=== PATIENT | female | born 1985 | race Caucasian/White ===

== ENCOUNTER 2019-03-02 14:57 | Inpatient (IN) ==
[2019-03-02] MEDS ORDERED: FLU VACCINE IM ONE (17:48)
[2019-03-02] MEDS ORDERED: PNEUMOVAX 23 IM ONE (18:00)
[2019-03-02] MEDS ORDERED: ZOFRAN IV PRN (18:05)
[2019-03-02] MEDS ORDERED: TYLENOL PO PRN (18:05)
[2019-03-02] MEDS ORDERED: SINEMET 25/100 PO PRN (18:05)
[2019-03-02] MEDS ORDERED: DESYREL PO PRN (18:05)
[2019-03-02] MEDS ORDERED: TUBERSOL ID ONE (18:05)
[2019-03-02] MEDS ORDERED: DULCOLAX PR PRN (18:05)
[2019-03-02] MEDS ORDERED: IMODIUM PO PRN (18:05)
[2019-03-02] MEDS ORDERED: ZOFRAN ODT PO PRN (18:05)
[2019-03-02] MEDS ORDERED: BENTYL PO PRN (18:05)
[2019-03-02] MEDS ORDERED: PHENOBARBITAL IV PRN (18:05)
[2019-03-02] MEDS ORDERED: ROBAXIN PO PRN (18:05)
[2019-03-02] MEDS ORDERED: NICODERM PATCH TD PRN (18:05)
[2019-03-02] MEDS ORDERED: ATARAX PO PRN (18:05)
[2019-03-02] MEDS ORDERED: MOTRIN PO PRN (18:05)
[2019-03-02] MEDS ORDERED: MAALOX PLUS LIQUID PO PRN (18:05)
[2019-03-02] MEDS ORDERED: D5W 1,000 ML IV PRN (18:05)
[2019-03-02] MEDS ORDERED: SENOKOT PO PRN (18:05)
[2019-03-02 19:08] LABS: HEMATOCRIT 36.8 % (37.0-47.0); HEMOGLOBIN 11.5 g/dL (12.0-16.0); MCH 26.7 PG (27-31); MCHC 31.3 g/dL (33-37); MCV 85.4 FL (81-99); MPV 9.9 FL (7.4-10.4); RBC 4.31 XMIL (4.2-5.4); RDW 13.9 % (11.5-14.5); WBC 5.95 X1000 (4.8-10.8)
[2019-03-02 19:31] LABS: INR 0.87; PROTIME 12.3 Seconds (11.0-16.0)
[2019-03-02 19:39] LABS: AMYLASE 36 U/L (20-200); LIPASE 12 U/L (13-60)
[2019-03-02 19:43] LABS: AGAP 12; ALBUMIN 4.4 g/dL (3.5-5.0); ALKALINE PHOSPHATASE 92 U/L (32-104); BUN 12 mg/dL (8-22); CALCIUM 8.8 mg/dL (8.8-10.2); CHLORIDE 105 mmol/L (98-107); COSMO 279; CREATININE 0.4 mg/dL (0.5-0.9); ESTIMATED GFR > 60; GLUCOSE 94 mg/dL (70-104); GOT 27 U/L (10-30); GPT 41 U/L (10-36); POTASSIUM 4.4 mmol/L (3.5-5.1); SODIUM 140 mmol/L (136-145); TCO2 23 mmol/L (25-35); TOTAL PROTEIN 7.4 g/dL (6.3-8.3)
[2019-03-02 20:07] LABS: URINE SOURCE VOIDED
[2019-03-02 20:12] LABS: BILIRUBIN URINE NEGATIVE (NEGATIVE); BLOOD URINE TRACE (NEGATIVE); COLOR YELLOW; GLUCOSE URINE NEGATIVE (NEGATIVE); KETONE URINE NEGATIVE (NEGATIVE); LEUKOCYTES URINE NEGATIVE (NEGATIVE); NITRITE URINE POSITIVE (NEGATIVE); PROTEIN URINE TRACE mg/dL (NEGATIVE); SP GRAVITY URINE 1.032; TURBIDITY URINE HAZY (CLEAR); UROBILINOGEN URINE NORMAL (NORMAL)
[2019-03-02 20:14] LABS: UR EPITHELIAL CELLS <10 /HPF (<10); URINE BACTERIA 4+ /HPF; URINE RBC <10 /HPF (<10); URINE WBC <10 /HPF (<10)
[2019-03-02 20:22] LABS: UR AMPHETAMINES QUAL PRESUMPTIVE POSITIVE (NONE DETECT); UR BARBITUATES QUAL NONE DETECTED (NONE DETECT); UR BENZODIAZEPIN QUAL NONE DETECTED (NONE DETECT); UR CANNABINOIDS QUAL NONE DETECTED (NONE DETECT); UR COCAINE QUAL NONE DETECTED (NONE DETECT); UR METHADONE QUAL NONE DETECTED (NONE DETECT); UR METHAMPHETAMINE QUAL PRESUMPTIVE POSITIVE (NONE DETECT); UR OPIATES QUAL PRESUMPTIVE POSITIVE (NONE DETECT); UR OXYCODONE QUAL NONE DETECTED (NONE DETECT); UR PCP QUAL NONE DETECTED (NONE DETECT); UR PROPOXYPHENE QUAL NONE DETECTED (NONE DETECT); UR TCA QUAL NONE DETECTED (NONE DETECT)
[2019-03-02] MEDS: SUBOXONE 2 MG/0.5 MG FILM SL SCH (21:15)
[2019-03-03] MEDS: SEROQUEL PO PRN (00:51)
[2019-03-03] MEDS: SUBOXONE 2 MG/0.5 MG FILM SL SCH ×2 (08:41→21:04)
[2019-03-03] MEDS: PROTONIX PO SCH (08:42)
[2019-03-03] MEDS: FOLIC ACID PO SCH (08:42)
[2019-03-03] MEDS: VITAMIN B-1 PO SCH (08:42)
[2019-03-03] MEDS: THERA M PLUS PO SCH (08:42)
--- NOTE | 2019-03-03 11:46 | PROGRESS NOTE ---
DATE: 03/03/2019 SUBJECTIVE: Patient notes that she is feeling a little bit better. Denies any fevers, chills. PHYSICAL EXAMINATION: Vital Signs: Reviewed. General: She is awake, alert. She is in no distress, sitting in bed watching television. HEENT: Normocephalic. Neck: Supple. Cardiovascular: Regular rate. Chest: Clear, nonlabored. Abdomen: Soft, nondistended. Extremities: Moves all extremities. Neurologic: No focal changes. Skin: Warm and dry. No rashes. ASSESSMENT: 1. Nausea and vomiting. 2. Abdominal pain. 3. Myalgias. 4. Paresthesias. 5. Paroxysmal sweating. 6. Opiate abuse withdrawal and stabilization. 7. Polysubstance use and abuse. PLAN: We will continue counseling patient. Continue Suboxone, wean as tolerated. Further orders as needed. cc: Steve Norris MD
--- NOTE | 2019-03-03 12:58 | HISTORY AND PHYSICAL ---
CHIEF COMPLAINT: Nausea, vomiting. HISTORY OF PRESENT ILLNESS: Patient is a 33-year-old female who presented to [facility] secondary to nausea, vomiting, abdominal pain, myalgias and tremors. Notes that she has been abusing and overusing opiates. She has been trying to stop, but unsuccessful. SOCIAL HISTORY: Patient is single. She is currently unemployed. Lives at home in [place]. PAST MEDICAL HISTORY: ADD, history of sepsis, bulging disk with degenerative disk disease which is where she started abusing opiates, recurrent urinary tract infections. MEDICATIONS: None. ALLERGIES: None. REVIEW OF SYSTEMS: CIWA score is 20 secondary to nausea, vomiting, fidgety, restless, watery eyes, runny nose, frequent diarrhea, sweating, yawning, paresthesias, paroxysmal sweating. Denies any fevers, chills, cough, congestion, upper respiratory symptoms. Denies headaches, blurred vision, change in vision. Denies any focalized numbness, tingling, weakness in her extremities. Denies dysuria, urinary frequency. SUBSTANCE ABUSE HISTORY: The patient was in treatment in 2003 in [place], detoxed after 28 days, relapsed after 14 months. Notes that substance abuse has caused legal problems, emotional problems and social problems. Notes that her daughter currently is in foster care due to the patient's drug use. She started alcohol at 14, currently binge drinks occasionally. Started marijuana at 14, currently uses daily. Started depressants at 14, currently takes only when she cannot sleep. Started meth at 14, currently using IV daily. Started cocaine at 16, hallucinogens at 16 only uses experimentally. Started opiates at 16, currently is taking 16 to 22 hydrocodone a day or heroin daily. Started smoking at 12, currently smokes less than a pack a day. FAMILY HISTORY: Noncontributory. PHYSICAL EXAMINATION: VITAL SIGNS: Reviewed. She is awake, alert. She is pleasant. She is in no respiratory distress. HEENT: Normocephalic. NECK: Supple. CARDIOVASCULAR: Regular rate. No murmurs. CHEST: Clear. ABDOMEN: Soft. EXTREMITIES: Moves all extremities. NEUROLOGIC: No focal changes. ASSESSMENT: 1. Nausea and vomiting. 2. Abdominal pain. 3. Myalgias. 4. Paresthesias. 5. Paroxysmal sweating. 6. Chronic degenerative disk disease. 7. Opiate abuse and stabilization. 8. Polysubstance use and abuse. PLAN: We are going to continue patient in the hospital. Begin counseling. Place her on Suboxone 4 mg twice daily and will wean as tolerated. Discussed with patient the use of medication assisted therapy, i.e. naltrexone versus Suboxone on discharge. We will continue to discuss. cc: Steve Norris MD
[2019-03-03] MEDS: LIBRIUM PO PRN (21:19)
[2019-03-04 00:14] VITALS: BP 117/73
[2019-03-04] MEDS: SEROQUEL PO PRN (01:53)
[2019-03-04] MEDS: PROTONIX PO SCH ×2 (07:26→09:42)
[2019-03-04] MEDS: VITAMIN B-1 PO SCH (09:42)
[2019-03-04] MEDS: FOLIC ACID PO SCH (09:42)
[2019-03-04] MEDS: THERA M PLUS PO SCH (09:42)
[2019-03-04] MEDS: SUBOXONE 2 MG/0.5 MG FILM SL SCH (09:42)
--- NOTE | 2019-03-04 11:04 | PROGRESS NOTE ---
DATE: 03/04/2019 SUBJECTIVE: Patient notes that she feels okay but she is having more sweating and more muscle aches today than yesterday. Denies any tremors. Denies any nausea or vomiting. PHYSICAL EXAMINATION: Vital Signs: Reviewed. She is afebrile. Blood pressure is stable, respiratory rate 20. General: Patient is in no apparent respiratory distress. She is lying in bed. She is mildly diaphoretic. HEENT: Normocephalic. Neck: Supple. CV: Regular rate. Chest: Clear. Abdomen: Soft. Extremities: Moves all extremities. ASSESSMENT: 1. Nausea and vomiting. 2. Abdominal pain. 3. Myalgias. 4. Paresthesias. 5. Paroxysmal sweating. 6. Opiate abuse, withdrawal, and stabilization. 7. Polysubstance use and abuse. PLAN: We are going to continue patient in the hospital. Continue Suboxone. We will continue to wean for now and we will follow. cc: Steve Norris MD
[2019-03-04] MEDS: LIBRIUM PO PRN (11:49)
--- NOTE | 2019-03-05 09:16 | DISCHARGE SUMMARY ---
ADMISSION DATE: 03/02/2019 DISCHARGE DATE: 03/04/2019 DISCHARGE DIAGNOSES: 1. Nausea vomiting . 2. Abdominal pain. 3. Tremors. 4. Myalgias. 5. Paresthesias. 6. Paroxysmal sweating. 7. Polysubstance use and abuse. 8. Chronic tobacco abuse. 9. Chronic anxiety, depression. CONSULTATIONS: None. PROCEDURES: None. BRIEF HOSPITAL COURSE: The patient is a 33-year-old female who presented to [facility]. She was placed on Suboxone. She noted that her symptoms were improving. On the date of discharge, she was seen earlier that morning by myself. She had no new complaints. She stated that she was feeling okay but still unsure as to whether she was going to stay on Suboxone or continue to wean off. We discussed making a decision over the next 24 hours and we would go in that direction. However at some point that afternoon Ms Morris decided that she was no longer going to stay in the hospital and she abruptly left. Therefore, no discharge planning was able to be performed. No prescriptions were written or changed on discharge. TIME SPENT: Greater than 30 minutes was spent in the care on the date of discharge. cc: Steve Norris MD
== END 2019-03-04 13:45 | disposition left against medical advice (07) | DRG 894 ==
LOC: P.DIRADM 14:57 → P.MEDSURG 16:31
PROVIDERS: ADMIT Family Medicine; ATTEND Family Medicine

== ENCOUNTER 2019-03-06 11:13 | Inpatient (IN) ==
[2019-03-06] MEDS ORDERED: LIBRIUM PO PRN (13:23)
[2019-03-06] MEDS ORDERED: TYLENOL PO PRN (13:23)
[2019-03-06] MEDS ORDERED: SINEMET 25/100 PO PRN (13:23)
[2019-03-06] MEDS ORDERED: DULCOLAX PR PRN (13:23)
[2019-03-06] MEDS ORDERED: PHENOBARBITAL IV PRN (13:23)
[2019-03-06] MEDS ORDERED: D5W 1,000 ML IV PRN (13:23)
[2019-03-06] MEDS ORDERED: NICODERM PATCH TD PRN (13:23)
[2019-03-06] MEDS ORDERED: MOTRIN PO PRN (13:23)
[2019-03-06] MEDS ORDERED: MAALOX PLUS LIQUID PO PRN (13:23)
[2019-03-06] MEDS ORDERED: DESYREL PO PRN (13:23)
[2019-03-06] MEDS ORDERED: TUBERSOL ID ONE (13:23)
[2019-03-06] MEDS ORDERED: ZOFRAN IV PRN (13:23)
[2019-03-06] MEDS ORDERED: IMODIUM PO PRN (13:23)
[2019-03-06] MEDS ORDERED: SENOKOT PO PRN (13:23)
[2019-03-06] MEDS ORDERED: ZOFRAN ODT PO PRN (13:23)
[2019-03-06] MEDS ORDERED: BENTYL PO PRN (13:23)
[2019-03-06 13:57] LABS: HEMATOCRIT 38.9 % (37.0-47.0); HEMOGLOBIN 12.1 g/dL (12.0-16.0); MCH 26.5 PG (27-31); MCHC 31.1 g/dL (33-37); MCV 85.3 FL (81-99); MPV 9.8 FL (7.4-10.4); RBC 4.56 XMIL (4.2-5.4); RDW 13.8 % (11.5-14.5); WBC 7.68 X1000 (4.8-10.8)
[2019-03-06] MEDS ORDERED: FLU VACCINE IM ONE (14:09)
[2019-03-06] MEDS ORDERED: PNEUMOVAX 23 IM ONE (14:10)
[2019-03-06 14:20] LABS: AMYLASE 40 U/L (20-200); LIPASE 12 U/L (13-60)
[2019-03-06 14:24] LABS: INR 0.95; PROTIME 13.1 Seconds (11.0-16.0)
[2019-03-06 14:28] LABS: AGAP 14; ALBUMIN 4.6 g/dL (3.5-5.0); ALKALINE PHOSPHATASE 88 U/L (32-104); BUN 9 mg/dL (8-22); CHLORIDE 104 mmol/L (98-107); COSMO 285; CREATININE 0.5 mg/dL (0.5-0.9); ESTIMATED GFR > 60; GLUCOSE 115 mg/dL (70-104); GOT 25 U/L (10-30); GPT 32 U/L (10-36); POTASSIUM 3.7 mmol/L (3.5-5.1); SODIUM 143 mmol/L (136-145); TCO2 25 mmol/L (25-35)
[2019-03-06] MEDS: ATARAX PO PRN (15:27)
[2019-03-06 15:47] LABS: URINE SOURCE CLEAN CATCH
[2019-03-06 15:51] LABS: BILIRUBIN URINE NEGATIVE (NEGATIVE); BLOOD URINE TRACE (NEGATIVE); COLOR YELLOW; GLUCOSE URINE NEGATIVE (NEGATIVE); KETONE URINE NEGATIVE (NEGATIVE); LEUKOCYTES URINE NEGATIVE (NEGATIVE); NITRITE URINE POSITIVE (NEGATIVE); PROTEIN URINE TRACE mg/dL (NEGATIVE); TURBIDITY URINE CLEAR (CLEAR); UROBILINOGEN URINE NORMAL (NORMAL)
[2019-03-06 15:52] LABS: UR EPITHELIAL CELLS <10 /HPF (<10); URINE BACTERIA 4+ /HPF; URINE RBC <10 /HPF (<10); URINE WBC <10 /HPF (<10)
[2019-03-06 16:21] LABS: UR AMPHETAMINES QUAL PRESUMPTIVE POSITIVE (NONE DETECT); UR BARBITUATES QUAL NONE DETECTED (NONE DETECT)
[2019-03-06 16:22] LABS: UR BENZODIAZEPIN QUAL PRESUMPTIVE POSITIVE (NONE DETECT); UR CANNABINOIDS QUAL NONE DETECTED (NONE DETECT); UR COCAINE QUAL NONE DETECTED (NONE DETECT); UR METHADONE QUAL NONE DETECTED (NONE DETECT); UR METHAMPHETAMINE QUAL PRESUMPTIVE POSITIVE (NONE DETECT); UR OPIATES QUAL PRESUMPTIVE POSITIVE (NONE DETECT); UR OXYCODONE QUAL NONE DETECTED (NONE DETECT); UR PCP QUAL NONE DETECTED (NONE DETECT); UR PROPOXYPHENE QUAL NONE DETECTED (NONE DETECT); UR TCA QUAL NONE DETECTED (NONE DETECT)
[2019-03-06] MEDS: SUBOXONE 2 MG/0.5 MG FILM SL SCH (18:23)
[2019-03-06] MEDS: SEROQUEL PO PRN (22:15)
--- NOTE | 2019-03-06 23:31 | HISTORY AND PHYSICAL ---
CHIEF COMPLAINT: Nausea and vomiting. HISTORY OF PRESENT ILLNESS: The patient is a 33-year-old female who re-presented to [facility]. She actually was here a few days ago and left AMA. She states that she has decided to come back and to continue on the path to get her life clean; however, after leaving the hospital early and going home she has had nausea, vomiting and abdominal pain. She has had decreased oral intake and notes that she is starting to have sweating and chills as well. SOCIAL HISTORY: She is single, unemployed. Lives at home in [place]. PAST MEDICAL HISTORY: ADD, history of sepsis, bulging disk disease in her back. She has a history of depression since age 23. MEDICATIONS: She is on no current prescription medications. ALLERGIES: No current drug allergies. REVIEW OF SYSTEMS: CINA score is elevated at 20 secondary to anxiety, moderately fidgety, anxious and nervous. She is unable to sit still, frequently has trouble concentrating and answering questions or following commands. She is having some nausea, no current dry heaves. Muscle aches are present, although still not as bad as they were when she presented a few days ago. Denies fevers, chills, dysuria, frequency, urgency, constipation, melena or hematochezia. She does have sweating chills at times. SUBSTANCE ABUSE HISTORY: She was in treatment in [place] in 2003. As noted, she was in [facility] a few days ago and left AMA. Notes that substance abuse has caused legal problems as well as family problems. DHR is currently involved. She wants to get her life back and get her children back. She started drinking at age 14. Currently has not drank since around age 24. She started marijuana at 14 and had been using daily until age 22. She started depressants at 14, currently takes only when she cannot sleep. She started methamphetamine at 14 and is currently still using IV, up to 2 points daily. She tried cocaine at 16 for about 4 or 5 years socially. She started hallucinogens at 16, only used a few times. She started opiates at 16, currently has progressed to heroin daily. She started smoking at 12, currently smokes less than a pack a day. FAMILY HISTORY: Noncontributory. PHYSICAL EXAMINATION: VITAL SIGNS: Reviewed. GENERAL: She is awake, alert. She is in no current respiratory distress but obvious opiate withdrawal. She is fidgety, anxious, unable to sit still, having difficulty answering questions. She is noted to be mildly diaphoretic. HEENT: Normocephalic. NECK: Supple. CARDIOVASCULAR: Regular rate. CHEST: Clear. ABDOMEN: Soft, nondistended. EXTREMITIES: Moves all extremities. NEUROLOGIC: No changes. SKIN: Warm and dry. No rashes. LABORATORY DATA: Pending. ASSESSMENT: 1. Nausea and vomiting. 2. Abdominal pain. 3. Myalgias. 4. Paresthesias. 5. Paroxysmal sweating. 6. Opiate abuse, withdrawal and stabilization. 7. Chronic tobacco abuse. 8. Polysubstance use and abuse. PLAN: Discussed with patient the importance of stopping smoking. Discussed the use of Suboxone. We will place her back in the hospital, continue counseling and place her back on Suboxone. She has decided this would be her best plan, and with weaning down she was not successful. cc: Steve Norris MD
[2019-03-07] MEDS: PROTONIX PO SCH (07:01)
[2019-03-07] MEDS: SUBOXONE 2 MG/0.5 MG FILM SL SCH (07:01)
[2019-03-07] MEDS: THERA M PLUS PO SCH (08:36)
[2019-03-07] MEDS: FOLIC ACID PO SCH (08:36)
[2019-03-07] MEDS: VITAMIN B-1 PO SCH (08:36)
[2019-03-07] MEDS: SUBOXONE 8 MG/2 MG FILM SL SCH ×2 (11:45→21:20)
[2019-03-07] MEDS: ROBAXIN PO PRN ×2 (12:50→21:20)
[2019-03-07] MEDS: ATARAX PO PRN (14:46)
[2019-03-07] MEDS: SEROQUEL PO PRN (21:28)
--- NOTE | 2019-03-08 01:44 | PROGRESS NOTE ---
DATE: 03/07/2019 SUBJECTIVE: Patient notes that although she feels terrible she is feeling a little bit better after getting restarted on Suboxone. Denies any fevers, chills. Denies headaches, blurred vision, change in vision. PHYSICAL EXAMINATION: Vital signs: She is afebrile. Vital signs stable. HEENT: Normocephalic. Neck: Supple. Cardiovascular: Regular rate. Chest: Clear. Abdomen: Soft. Extremities: Moves all extremities. Neurologic: No focal changes. ASSESSMENT: 1. Nausea and vomiting. 2. Abdominal pain. 3. Myalgias. 4. Paresthesias. 5. Paroxysmal sweating. 6. Opiate abuse withdrawal and stabilization. PLAN: We are going to continue patient in the hospital. Continue counseling. Increase her Suboxone to 8/2. Further orders as needed. cc: Steve Norris MD
[2019-03-08] MEDS: PROTONIX PO SCH (06:22)
[2019-03-08] MEDS: SUBOXONE 8 MG/2 MG FILM SL SCH (11:18)
[2019-03-08] MEDS: VITAMIN B-1 PO SCH (11:18)
[2019-03-08] MEDS: FOLIC ACID PO SCH (11:19)
[2019-03-08] MEDS: THERA M PLUS PO SCH (11:19)
[2019-03-08 12:55] VITALS: BP 117/72
--- NOTE | 2019-03-09 19:06 | DISCHARGE SUMMARY ---
ADMISSION DATE: 03/06/2019 DISCHARGE DATE: 03/08/2019 DISCHARGE DIAGNOSES: 1. Nausea and vomiting. 2. Abdominal pain. 3. Myalgias. 4. Paresthesias. 5. Paroxysmal sweating. 6. Opiate abuse, withdrawal and stabilization. CONSULTATIONS: None. PROCEDURES: None. BRIEF HOSPITAL COURSE: Patient was admitted to the hospital secondary to nausea, vomiting, abdominal pain, myalgias, and paresthesias. She was placed on Suboxone, which she tolerated very well. On discharge, she is awake, alert, and in no distress. PHYSICAL EXAMINATION: HEENT: Normocephalic. General: She is pleasant. Notes that she is feeling better. She ate breakfast. DISPOSITION: Patient to be discharged home. She will continue Suboxone at home. She will continue to follow up outpatient with treatment facility of choice. Discussed with patient that she needs to avoid all persons, places and situations in which she has been using and abusing in the past. She needs outpatient life counseling as well as drug counseling. Greater than 30 minutes was spent in total care. cc: Steve Norris MD
== END 2019-03-08 16:36 | disposition home or self-care (01) | DRG 897 ==
LOC: P.DIRADM 11:13 → P.MEDSURG 12:12
PROVIDERS: ADMIT Family Medicine; ATTEND Family Medicine

== ENCOUNTER 2019-05-09 18:39 | Inpatient (IN) ==
[2019-05-09] MEDS ORDERED: ZOFRAN IV PRN (19:45)
[2019-05-09] MEDS ORDERED: IMODIUM PO PRN (19:45)
[2019-05-09] MEDS ORDERED: NICODERM PATCH TD PRN (19:45)
[2019-05-09] MEDS ORDERED: BENTYL PO PRN (19:45)
[2019-05-09] MEDS ORDERED: DULCOLAX PR PRN (19:45)
[2019-05-09] MEDS ORDERED: D5W 1,000 ML IV PRN (19:45)
[2019-05-09] MEDS ORDERED: MAALOX PLUS LIQUID PO PRN (19:45)
[2019-05-09] MEDS ORDERED: ZOFRAN ODT PO PRN (19:45)
[2019-05-09] MEDS ORDERED: PHENOBARBITAL IV PRN (19:45)
[2019-05-09] MEDS ORDERED: SENOKOT PO PRN (19:45)
[2019-05-09] MEDS ORDERED: TYLENOL PO PRN (19:45)
[2019-05-09] MEDS ORDERED: LIBRIUM PO PRN (19:45)
[2019-05-09] MEDS ORDERED: SUBOXONE 2 MG/0.5 MG FILM SL SCH (20:00)
[2019-05-09 20:22] LABS: HEMATOCRIT 42.3 % (37.0-47.0); HEMOGLOBIN 13.2 g/dL (12.0-16.0); MCH 27.3 PG (27-31); MCHC 31.2 g/dL (33-37); MCV 87.4 FL (81-99); RBC 4.84 XMIL (4.2-5.4); RDW 15.7 % (11.5-14.5); WBC 4.56 X1000 (4.8-10.8)
[2019-05-09 20:48] LABS: AGAP 11; ALBUMIN 4.1 g/dL (3.5-5.0); ALKALINE PHOSPHATASE 231 U/L (32-104); BUN 9 mg/dL (8-22); CALCIUM 8.8 mg/dL (8.8-10.2); CHLORIDE 99 mmol/L (98-107); COSMO 272; CREATININE 0.4 mg/dL (0.5-0.9); ESTIMATED GFR > 60; GLUCOSE 85 mg/dL (70-104); GOT 910 U/L (10-30); GPT 1288 U/L (10-36); POTASSIUM 3.8 mmol/L (3.5-5.1); SODIUM 137 mmol/L (136-145); TCO2 26 mmol/L (25-35); TOTAL PROTEIN 7.6 g/dL (6.3-8.3)
[2019-05-09 20:52] LABS: INR 0.97; PROTIME 13.4 Seconds (11.0-16.0)
[2019-05-09 20:55] LABS: AMYLASE 39 U/L (20-200); LIPASE 15 U/L (13-60)
[2019-05-09 22:44] LABS: URINE SOURCE CLEAN CATCH
[2019-05-09 22:49] LABS: BILIRUBIN URINE SMALL (NEGATIVE); BLOOD URINE NEGATIVE (NEGATIVE); COLOR YELLOW; GLUCOSE URINE NEGATIVE (NEGATIVE); KETONE URINE NEGATIVE (NEGATIVE); LEUKOCYTES URINE NEGATIVE (NEGATIVE); NITRITE URINE NEGATIVE (NEGATIVE); PROTEIN URINE TRACE mg/dL (NEGATIVE); SP GRAVITY URINE 1.027; TURBIDITY URINE HAZY (CLEAR); UROBILINOGEN URINE 4 mg/dL (NORMAL)
[2019-05-09 22:50] LABS: UR EPITHELIAL CELLS <10 /HPF (<10); URINE BACTERIA 4+ /HPF; URINE RBC <10 /HPF (<10); URINE WBC <10 /HPF (<10)
[2019-05-09 23:14] LABS: UR AMPHETAMINES QUAL PRESUMPTIVE POSITIVE (NONE DETECT); UR BARBITUATES QUAL NONE DETECTED (NONE DETECT); UR BENZODIAZEPIN QUAL NONE DETECTED (NONE DETECT); UR COCAINE QUAL NONE DETECTED (NONE DETECT); UR METHADONE QUAL NONE DETECTED (NONE DETECT); UR METHAMPHETAMINE QUAL PRESUMPTIVE POSITIVE (NONE DETECT)
[2019-05-09 23:15] LABS: UR CANNABINOIDS QUAL NONE DETECTED (NONE DETECT); UR OPIATES QUAL PRESUMPTIVE POSITIVE (NONE DETECT); UR OXYCODONE QUAL NONE DETECTED (NONE DETECT); UR PCP QUAL NONE DETECTED (NONE DETECT); UR PROPOXYPHENE QUAL NONE DETECTED (NONE DETECT); UR TCA QUAL NONE DETECTED (NONE DETECT)
[2019-05-10] MEDS: ROBAXIN PO PRN ×2 (05:15→20:48)
[2019-05-10] MEDS: MOTRIN PO PRN (05:16)
[2019-05-10] MEDS: PROTONIX PO SCH ×2 (05:16→06:50)
[2019-05-10] MEDS ORDERED: M.V.I.-12 10 ML, FOLIC ACID 1 MG, MAGNESIUM SULFATE 1 GM, THIAMINE 100 MG in NS 1,000 ML IV ONE (08:00)
[2019-05-10] MEDS: THERA M PLUS PO SCH (09:34)
[2019-05-10] MEDS: VITAMIN B-1 PO SCH (09:34)
[2019-05-10] MEDS: SUBOXONE 2 MG/0.5 MG FILM SL SCH ×2 (09:34→20:48)
[2019-05-10] MEDS: FOLIC ACID PO SCH (09:34)
[2019-05-10] MEDS: ATARAX PO PRN (20:48)
[2019-05-10] MEDS: SEROQUEL PO PRN (20:48)
[2019-05-10] MEDS: SINEMET 25/100 PO PRN (20:48)
--- NOTE | 2019-05-10 23:44 | PROGRESS NOTE ---
DATE: 05/10/2019 SUBJECTIVE: The patient states overall she is feeling a little bit better. Denies any chest pain or palpitations. PHYSICAL EXAMINATION: Temperature 98 degrees, pulse 108, respiratory rate 18, BP 123/81.General: The patient is pleasant. She is currently in no distress. HEENT: Normocephalic. Neck: Supple. Cardiovascular: Regular rate. Chest: Clear. Abdomen: Soft. PLAN: We are going to continue the patient in the hospital. Continue Suboxone. Continue counseling. We are going continue to wean as tolerated and we will attempt to totally wean her off prior to discharge. cc: Steve Norris MD
[2019-05-11] MEDS: PROTONIX PO SCH (06:36)
[2019-05-11] MEDS: FOLIC ACID PO SCH (08:47)
[2019-05-11] MEDS: SUBOXONE 2 MG/0.5 MG FILM SL SCH (08:47)
[2019-05-11] MEDS: THERA M PLUS PO SCH (08:47)
[2019-05-11] MEDS: VITAMIN B-1 PO SCH (08:47)
[2019-05-11] MEDS: ROBAXIN PO PRN ×2 (12:06→20:18)
[2019-05-11] MEDS: SEROQUEL PO PRN (20:18)
[2019-05-11] MEDS: SUBOXONE 8 MG/2 MG FILM SL SCH (20:18)
[2019-05-11] MEDS: DESYREL PO PRN ×2 (22:07→23:58)
[2019-05-11] MEDS: SINEMET 25/100 PO PRN (22:07)
[2019-05-11] MEDS: MOTRIN PO PRN (22:07)
--- NOTE | 2019-05-11 23:30 | PROGRESS NOTE ---
DATE: 05/11/2019 SUBJECTIVE: The patient notes that she does not feel well, although does feel better than admission. Still having muscle aches and occasional sweating. OBJECTIVE: Vital signs reviewed. She is awake, alert. Temperature 98 degrees, pulse 87, respiratory rate 18, BP 119/75.General: The patient is pleasant. HEENT: Normocephalic. Neck supple. Cardiovascular: Regular rate. Chest clear, nonlabored. Abdomen soft, nontender. Extremities: Moves all extremities. Neurologic: No changes. ASSESSMENT: 1. Nausea and vomiting. 2. Abdominal pain. 3. Myalgias. 4. Paresthesias. 5. Paroxysmal sweating. 6. Opioid abuse, withdrawal and stabilization. PLAN: Although her symptoms have improved with Suboxone 4 mg, we are going to increase to 8 to see if we can alleviate the rest of her symptoms. She is still sweating on exam. We will continue counseling. Further orders as needed. cc: Steve Norris MD
[2019-05-11] MEDS: ATARAX PO PRN (23:58)
[2019-05-12] MEDS: PROTONIX PO SCH (06:33)
[2019-05-12] MEDS: SUBOXONE 8 MG/2 MG FILM SL SCH (09:29)
[2019-05-12] MEDS: FOLIC ACID PO SCH (09:31)
[2019-05-12] MEDS: THERA M PLUS PO SCH (09:31)
[2019-05-12] MEDS: VITAMIN B-1 PO SCH (09:32)
[2019-05-12] MEDS: ROBAXIN PO PRN ×2 (09:36→18:24)
[2019-05-12 16:30] VITALS: BP 133/75
[2019-05-12] MEDS: ATARAX PO PRN (17:09)
--- NOTE | 2019-05-12 18:36 | PROGRESS NOTE ---
DATE: 05/12/2019 SUBJECTIVE: The patient notes that she is feeling okay. Denies any fevers or chills. PHYSICAL EXAMINATION: Vital signs: Reviewed. general: She is awake and alert. She is in no current distress. HEENT: Normocephalic. Neck: Supple. CARDIOVASCULAR: Regular rate. Chest: Clear. Abdomen: Soft, nondistended. Extremities: Moves all extremities. ASSESSMENT: 1. Nausea and vomiting. 2. Abdominal pain. 3. Myalgias. 4. Paresthesias. 5. Paroxysmal sweating. 6. Polysubstance use and abuse. PLAN: We are going to continue the patient in the hospital. Continue Suboxone. Continue counseling. Further orders as needed. Hopefully, she can transition to rehab Tuesday. cc: Steve Norris MD
--- NOTE | 2019-05-13 17:27 | HISTORY AND PHYSICAL ---
HISTORY OF PRESENT ILLNESS: The patient presented to the hospital with nausea, vomiting, and abdominal pain. She states that she has been using and abusing opiates. She has been trying to stop, but her withdrawal symptoms have become too severe. SOCIAL HISTORY: The patient is single. She is unemployed. Lives at home in [place]. PAST MEDICAL HISTORY: The patient has a history of ADD, degenerative disk disease with bulging disks, and history of sepsis. MEDICATIONS: None. ALLERGIES: None. REVIEW OF SYSTEMS: CINA score is 19 secondary to nausea, vomiting, increased agitation, and anxiety. She has been restless, fidgety, constantly moving about, unable to sit still, and sweating frequently. She has abdominal pain, frequent diarrhea, muscle aches, watery eyes, and runny nose. Denies chest pain or palpitations. Denies fevers pr chills. Denies dysuria, frequency, urgency, hesitancy, polyuria, or polydipsia. Denies skin rashes, weight loss, or weight gain. FAMILY HISTORY: Noncontributory. SUBSTANCE ABUSE HISTORY: The patient was in detox at [facility] in February outpatient, was noncompliant, and dismissed. She was at [facility] in February and stayed sober for 3 weeks. The patient started drinking alcohol at 14, currently drinks rarely. Started marijuana at 14, used daily until she was 22. Started Xanax at 14, states she only used as prescribed. Used stimulants at 14. Started cocaine at 16, only use weekends and socially. Started hallucinogens at 16. Started opiates at 16, currently she is using 3 to 4 points a day IV since her last discharge. Started smoking at age 12, currently smokes a pack a day. PHYSICAL EXAMINATION: VITAL SIGNS: Reviewed. Stable. GENERAL: The patient is awake. She is in no respiratory distress, but she is somewhat ill appearing from her withdrawal-type symptoms. HEENT: Normocephalic, atraumatic. JOHNNY. NECK: Supple. No JVD. CARDIOVASCULAR: Regular rate. CHEST: Clear, nonlabored. ABDOMEN: Soft, nondistended. EXTREMITIES: Moves all extremities. NEUROLOGIC: No focal changes. ASSESSMENT: 1. Nausea and vomiting. 2. Abdominal pain. 3. Myalgias. 4. Paresthesias. 5. Paroxysmal sweating. 6. Abdominal pain. 7. Polysubstance use and abuse. PLAN: We are going to admit patient to the hospital, begin counseling, and place her on Suboxone. She has plans to go to further inpatient counseling upon discharge. Further orders as needed. cc: Steve Norris MD
--- NOTE | 2019-05-13 17:56 | DISCHARGE SUMMARY ---
ADMISSION DATE: 05/09/2019 DISCHARGE DATE: 05/12/2019 DISCHARGE DIAGNOSES: 1. Nausea and vomiting. 2. Abdominal pain. 3. Myalgias. 4. Paresthesias. 5. Opiate abuse withdrawal and stabilization. CONSULTATIONS: None. PROCEDURES: None. BRIEF HOSPITAL COURSE: The patient is a 34-year-old female who presented to [facility] program secondary to nausea, vomiting, abdominal pain, myalgias, and paresthesias. She was placed on Suboxone. This was not effective. We increased from 4 to 8. She did note that she was feeling better. However, at some point on the she decided she was no longer going to stay in the hospital and left AMA. Therefore, no discharge planning, instructions, or medications were able to be given. cc: Steve Norris MD
== END 2019-05-12 19:10 | disposition left against medical advice (07) | DRG 894 ==
LOC: P.MEDSURG 18:39
PROVIDERS: ADMIT Family Medicine; ATTEND Family Medicine